=== PATIENT | female | born 1955 | race Hispanic/Latino ===

== ENCOUNTER 2020-06-07 14:36 | Emergency (ER) | payer SELFPAY ==
[2020-06-07 15:04] LABS: APPEARANCE,URINE Cloudy (CLEAR); BILIRUBIN,URINE Negative (NEGATIVE); COLOR,URINE Orange (YELLOW); GLUCOSE, URINE (UA) Negative (NEGATIVE); KETONES,URINE Negative (NEGATIVE); LEUKOCYTE ESTERASE ,URINE Large (NEGATIVE); NITRATE,URINE Negative (NEGATIVE); OCCULT BLOOD,URINE Large (NEGATIVE); PROTEIN,URINE POS 2+ mg/dL (NEGATIVE); UROBILINOGEN,URINE 0.2 mg/dL (0.2-1.0)
[2020-06-07 15:15] LABS: BACTERIA,URINE Few /HPF (None Seen); MUCUS,URINE Few LPF (None Seen); SQUAMOUS EPITHELIAL CELL,UR 0-2 /HPF (0-2)
[2020-06-07] MEDS ORDERED: PHENAZOPYRIDINE HCL 200 MG TABLET ONE (15:20)
[2020-06-07] MEDS ORDERED: CEFTRIAXONE SODIUM 1 GM ONE (15:20)
[2020-06-07] MEDS ORDERED: LIDOCAINE HCL-MPF 1% 2ML VIAL ONE (15:20)
== END 2020-06-07 15:35 | disposition home or self-care (01) ==
LOC: EDH 14:36
DX: N30.00 Acute cystitis without hematuria (principal); E78.00 Pure hypercholesterolemia, unspecified
CPT/HCPCS: 81001; 87088; 96372; 99283; J0696; J3490

== ENCOUNTER 2020-06-26 02:46 | Emergency (ER) | payer SELFPAY ==
[2020-06-26 03:04] LABS: APPEARANCE,URINE CLOUDY (CLEAR); BILIRUBIN,URINE SMALL (NEGATIVE); COLOR,URINE BROWN (YELLOW); GLUCOSE, URINE (UA) NEGATIVE (NEGATIVE); KETONES,URINE NEGATIVE (NEGATIVE); LEUKOCYTE ESTERASE ,URINE MODERATE (NEGATIVE); NITRATE,URINE POSITIVE (NEGATIVE); OCCULT BLOOD,URINE LARGE (NEGATIVE); PROTEIN,URINE 100 mg/dL (NEGATIVE)
[2020-06-26 03:47] LABS: BACTERIA,URINE Many /HPF (None Seen); MUCUS,URINE Few LPF (None Seen); RBC,URINE >100 /HPF (0-1)
[2020-06-26] MEDS ORDERED: PHENAZOPYRIDINE HCL 200 MG TABLET ONE (03:47)
[2020-06-26] MEDS ORDERED: SULFAMETHOX-TMP DS 800/160 TAB ONE (03:47)
[2020-06-26] MEDS ORDERED: DICYCLOMINE HCL 20 MG TAB ONE (03:47)
== END 2020-06-26 03:57 | disposition home or self-care (01) ==
LOC: EDH 02:46
DX: N39.0 Urinary tract infection, site not specified (principal); E78.00 Pure hypercholesterolemia, unspecified; F32.9 Major depressive disorder, single episode, unspecified
CPT/HCPCS: 81001; 87077; 87088; 87186

== ENCOUNTER 2021-06-03 18:43 | Emergency (ER) | payer SELFPAY ==
[~2021-06-03] VITALS: Ht 165.1 cm; Wt 59.4 kg
[2021-06-03 19:23] LABS: APPEARANCE,URINE Cloudy (CLEAR); BILIRUBIN,URINE Negative (NEGATIVE); COLOR,URINE Yellow (YELLOW); GLUCOSE, URINE (UA) Negative (NEGATIVE); KETONES,URINE Negative (NEGATIVE); LEUKOCYTE ESTERASE ,URINE Large (NEGATIVE); NITRATE,URINE Negative (NEGATIVE); OCCULT BLOOD,URINE Large (NEGATIVE); PH,URINE 6.5 (5.0-8.0); PROTEIN,URINE Negative (NEGATIVE)
[2021-06-03 19:30] LABS: RBC,URINE 26-50 /HPF (0-1)
[2021-06-03 19:31] LABS: BACTERIA,URINE Few /HPF (None Seen); SQUAMOUS EPITHELIAL CELL,UR Rare /HPF (0-2)
[2021-06-03] MEDS ORDERED: LACTATED RINGERS 1000ML 1,000 ML IV ONE (22:00)
[2021-06-03 22:14] LABS: BASOPHILS % (AUTO) 0.3 % (0.0-5.0); EOSINOPHILS % (AUTO) 0.4 % (0.0-8.0); HEMATOCRIT 36.1 % (36-48); LYMPHOCYTES % (AUTO) 23.6 % (21.0-51.0); MEAN CORPUSCULAR HEMOGLOBIN 31.9 pg (27.0-33.0); MEAN CORPUSCULAR HGB CONC 33.8 g/dL (32.0-36.0); MEAN CORPUSCULAR VOLUME 94.5 fL (79-99); NEUTROPHILS % (AUTO) 70.4 % (40.0-77.0); PLATELET COUNT (AUTO) 178 K/uL (130-400); RED BLOOD CELL COUNT(AUTO) 3.82 MIL/uL (4.00-5.50); RED CELL DISTRIBUTION WIDTH 11.9 % (11.0-15.5); WHITE BLOOD COUNT (AUTO) 11.4 K/uL (4.8-10.8)
[2021-06-03] MEDS ORDERED: CEFTRIAXONE 1G VIAL IVP ONE (22:30)
[2021-06-03 22:31] LABS: PROTHROMBIN TIME 10.9 SEC (9.6-11.6)
[2021-06-03 22:32] LABS: PARTIAL THROMBOPLASTIN TIME 25.6 SEC (26.3-35.5)
[2021-06-03 23:24] LABS: CARBON DIOXIDE 25 mmol/L (21-32); CHLORIDE 107 mmol/L (101-111); CREATININE 0.7 mg/dL (0.5-1.5); GLOMERULAR FILTR. RATE CALC 90 mL/min (>60); GLUCOSE,RANDOM 110 mg/dL (70-105); SODIUM SERUM 143 mmol/L (136-145); UREA NITROGEN, BLOOD 19 mg/dL (7-18)
[2021-06-03 23:29] LABS: ALANINE AMINOTRANSFERASE 32 U/L (12-78); ALBUMIN 3.5 g/dL (3.5-5.0); ASPARTATE AMINOTRANSFERASE 20 U/L (10-37); TOTAL PROTEIN, SERUM 6.8 g/dL (6.0-8.3)
[2021-06-03 23:39] LABS: BILIRUBIN,TOTAL < 0.2 mg/dL (0.2-1.0); CRP QUANTITATIVE < 2.00 mg/L (0.00-9.0)
[2021-06-04] MEDS ORDERED: PHEN-847 PO (00:32)
[2021-06-04] MEDS ORDERED: CEFU500T67 PO (00:32)
[2021-06-04 00:43] VITALS: BP 125/87
== END 2021-06-04 01:05 | disposition home or self-care (01) ==
LOC: EDH 18:43
DX: N30.91 Cystitis, unspecified with hematuria (principal); E78.00 Pure hypercholesterolemia, unspecified
CPT/HCPCS: 36415; 80053; 81001; 85025; 85610; 85730; 86140; 86850; 86900; 86901; 87077; 87088; 87186; 96361; 96374; 99283; J0696; J7120

== ENCOUNTER 2022-04-21 16:29 | Emergency (ER) | payer BC, OTHER ==
[~2022-04-21] VITALS: Ht 162.6 cm; Wt 59.9 kg
[~2022-04-21 16:29] MED LIST: CEFU500T67 PO; PHEN-847 PO
[2022-04-21] MEDS ORDERED: HYDROCODONE/ACETAMINOPHEN 5/325 MG TAB PO ONE (17:30)
[2022-04-21 18:15] VITALS: BP 118/72
[2022-04-21] MEDS ORDERED: AMOX1TAB16 PO (18:30)
[2022-04-21] MEDS ORDERED: AMOX/CLAV 875/125MG TAB PO ONE (18:30)
[2022-04-21] MEDS ORDERED: ACET-2247 PO (18:30)
== END 2022-04-21 18:40 | disposition home or self-care (01) ==
LOC: EDH 16:29
DX: S02.40DA Maxillary fracture, left side, initial encounter for closed fracture (principal); S16.1XXA Strain of muscle, fascia and tendon at neck level, initial encounter; S40.022A Contusion of left upper arm, initial encounter; S40.012A Contusion of left shoulder, initial encounter; S40.011A Contusion of right shoulder, initial encounter; Z79.899 Other long term (current) drug therapy; W01.0XXA Fall on same level from slipping, tripping and stumbling without subsequent striking against object, initial encounter; Y93.89 Activity, other specified; Y92.098 Other place in other non-institutional residence as the place of occurrence of the external cause; Y99.8 Other external cause status
CPT/HCPCS: 70450; 70486; 72125; 73030; 93005

== ENCOUNTER 2022-05-14 19:53 | Emergency (ER) | payer OTHER ==
[~2022-05-14] VITALS: Ht 160 cm; Wt 59.4 kg
[~2022-05-14 19:53] MED LIST changes: +ACET-2247 PO; +AMOX1TAB16 PO
[2022-05-14 21:12] LABS: BASOPHILS % (AUTO) 0.2 % (0.0-5.0); EOSINOPHILS % (AUTO) 0.2 % (0.0-8.0); HEMATOCRIT 38.8 % (36-48); LYMPHOCYTES % (AUTO) 20.4 % (21.0-51.0); MEAN CORPUSCULAR HEMOGLOBIN 32.3 pg (27.0-33.0); MEAN CORPUSCULAR HGB CONC 34.3 g/dL (32.0-36.0); MEAN CORPUSCULAR VOLUME 94.2 fL (79-99); MONOCYTES % (AUTO) 6.8 % (3.0-13.0); NEUTROPHILS % (AUTO) 72.2 % (40.0-77.0); PLATELET COUNT (AUTO) 218 K/uL (130-400); RED BLOOD CELL COUNT(AUTO) 4.12 MIL/uL (4.00-5.50); RED CELL DISTRIBUTION WIDTH 11.9 % (11.0-15.5)
[2022-05-14 21:19] LABS: CREATININE 0.6 mg/dL (0.5-1.5); POTASSIUM 4.2 mmol/L (3.5-5.1)
[2022-05-14 21:28] LABS: ALBUMIN 3.9 g/dL (3.5-5.0); TOTAL PROTEIN, SERUM 7.6 g/dL (6.0-8.3)
[2022-05-14 21:29] LABS: APPEARANCE,URINE CLEAR (CLEAR); BILIRUBIN,URINE NEGATIVE (NEGATIVE); COLOR,URINE LIGHT-YELLOW (YELLOW); GLUCOSE, URINE (UA) NEGATIVE (NEGATIVE); KETONES,URINE NEGATIVE (NEGATIVE); LEUKOCYTE ESTERASE ,URINE 25 Leu/uL (NEGATIVE); NITRATE,URINE NEGATIVE (NEGATIVE); OCCULT BLOOD,URINE NEGATIVE (NEGATIVE); PH,URINE 5.5 (5.0-8.0); PROTEIN,URINE NEGATIVE (NEGATIVE); UROBILINOGEN,URINE 0.2 mg/dL (0.2-1.0)
[2022-05-14 21:36] LABS: BACTERIA,URINE RARE /HPF (None Seen); MUCUS,URINE RARE LPF (None Seen); SQUAMOUS EPITHELIAL CELL,UR MOD /HPF (0-2)
[2022-05-15] MEDS ORDERED: AMOX1TAB16 PO (01:07)
[2022-05-15] MEDS ORDERED: ACET-2079 PO (01:07)
[2022-05-15 01:15] VITALS: BP 120/45
[2022-05-15] MEDS: AMOX/CLAV 875/125MG TAB PO ONE ×2 (01:32)
== END 2022-05-15 01:33 | disposition home or self-care (01) ==
LOC: EDH 19:53
DX: S02.31XA Fracture of orbital floor, right side, initial encounter for closed fracture (principal); S01.111A Laceration without foreign body of right eyelid and periocular area, initial encounter; Z98.890 Other specified postprocedural states; W18.09XA Striking against other object with subsequent fall, initial encounter; Y93.89 Activity, other specified; Y92.89 Other specified places as the place of occurrence of the external cause; Y99.8 Other external cause status
CPT/HCPCS: 36415; 70450; 70486; 71045; 72125; 80053; 81001; 84484; 85025; 93005

== ENCOUNTER 2022-05-29 10:30 | Emergency (ER) | payer OTHER ==
[~2022-05-29] VITALS: Ht 162.6 cm; Wt 59.0 kg
[~2022-05-29 10:30] MED LIST changes: +ACET-2079 PO
[2022-05-29 11:35] LABS: APPEARANCE,URINE TURBID (CLEAR); BILIRUBIN,URINE NEGATIVE (NEGATIVE); COLOR,URINE YELLOW (YELLOW); GLUCOSE, URINE (UA) >=1000 mg/dL (NEGATIVE); KETONES,URINE 5 mg/dL (NEGATIVE); LEUKOCYTE ESTERASE ,URINE 500 Leu/uL (NEGATIVE); NITRATE,URINE 2+ (NEGATIVE); OCCULT BLOOD,URINE LARGE (NEGATIVE); PH,URINE 5.5 (5.0-8.0); PROTEIN,URINE 70 mg/dL (NEGATIVE); UROBILINOGEN,URINE 0.2 mg/dL (0.2-1.0)
[2022-05-29 11:37] LABS: BACTERIA,URINE FEW /HPF (None Seen); MUCUS,URINE RARE LPF (None Seen); RBC,URINE 51-100 /HPF (0-1); SQUAMOUS EPITHELIAL CELL,UR RARE /HPF (0-2); WBC,URINE TNTC /HPF (0-1)
[2022-05-29] MEDS ORDERED: CEFU500T67 PO (11:49)
[2022-05-29] MEDS ORDERED: CEFTRIAXONE 1G VIAL IVP SCH (12:00)
[2022-05-29 12:19] VITALS: BP 138/64
== END 2022-05-29 12:26 | disposition home or self-care (01) ==
LOC: EDH 10:30
DX: N39.0 Urinary tract infection, site not specified (principal); Z98.890 Other specified postprocedural states; Z79.899 Other long term (current) drug therapy
CPT/HCPCS: 99283; 96374; 87077; 87088; 87186; 81001; J0696

== ENCOUNTER → 2024-01-04 | Outpatient (CLI) | payer OTHER | END | disposition home or self-care (01) | LOC: RAH 08:23 | PROVIDERS: ATTEND Otolaryngology Plastic Surgery within the Head & Neck | DX: R13.10 Dysphagia, unspecified (principal); K21.9 Gastro-esophageal reflux disease without esophagitis | CPT/HCPCS: 74230; 92611 ==

== ENCOUNTER 2024-05-19 17:05 | Emergency (ER) | payer OTHER ==
[~2024-05-19] VITALS: Ht 162.6 cm; Wt 53.5 kg
[2024-05-19] MEDS: ketOROlac 15MG/ML VIAL (15MG/ML) IM ONE (17:47)
[2024-05-19] MEDS ORDERED: KETO10TA2 PO (19:01)
[2024-05-19 19:24] VITALS: BP 122/60; PULSE 88; RESP 14; TEMP 98.2; O2SAT 96
== END 2024-05-19 19:26 | disposition home or self-care (01) ==
LOC: EDH 17:05
DX: R10.32 Left lower quadrant pain (principal); Z79.899 Other long term (current) drug therapy; Z98.890 Other specified postprocedural states
CPT/HCPCS: 99283; 72170; 96372; J1885

== ENCOUNTER 2025-05-12 21:42 | Emergency (ER) | payer OTHER ==
[~2025-05-12] VITALS: Ht 167.6 cm; Wt 44.0 kg
[~2025-05-12 21:42] MED LIST changes: +KETO10TA2 PO
--- NOTE | 2025-05-12 22:14 | ERN ---
ED Note History of Present Illness Stated Complaint: C/O "PEG TUBE OUT" Chief Complaint: Other Problems Time Seen by MD: 21:52 Dictation: This is a 69-year-old female who was diagnosed with supranuclear palsy and progressive weakness dysphagia and inability to walk for the past 2-3 years. Patient's spouse indicated that she had a PEG tube placement 8 or 9 months ago and most of her nutrition is through the PEG tube only. indicated that there is a provider that comes in for a few hours daily. The PEG tube came out accidentally today a couple hours ago and they brought her into the ER for further evaluation. Patient has severe dysarthria and is bed-bound Temperature 98.1 pulse 86 respirations 20 blood pressure 124/52 with a pulse oximetry of 98% on room air Chronic medical problems include progressive supranuclear palsy, dysphagia status post gastrostomy tube placement Allergies: Coded Allergies: No Known Drug Allergies (Unverified Allergy, Unknown, 06/03/21) Home Meds Active Scripts Ketorolac Tromethamine (Ketorolac Tromethamine) 10 Mg Tablet, 10 MG PO BID for 5 Days, #10 TAB Prov:JORDIN DELUNA 05/19/24 Cefuroxime Axetil (Cefuroxime) 500 Mg Tablet, 500 MG PO BID, #20 TAB Prov:MANAS DAVISON MD 05/29/22 Acetaminophen with Codeine (Acetaminophen-Cod #3 Tablet) 1 Each Tablet, 1 TAB PO Q6H PRN for PAIN LEVEL 7 TO 10, #15 TAB Prov:CLINTON GARCES MD 05/15/22 Amoxicillin/Potassium Clav (Amox Tr-K Clv 875-125 mg Tab) 1 Each Tablet, 1 EACH PO BID for 7 Days, #14 TAB Prov:CLINTON GARCES MD 05/15/22 Acetaminophen (Tylenol) 325 Mg Tablet, 650 MG PO Q4HPRN, #50 TAB Prov:HANNAH MUNOZ 04/21/22 Amoxicillin/Potassium Clav (Amox Tr-K Clv 875-125 mg Tab) 1 Each Tablet, 1 EACH PO BID for 10 Days, #20 TAB Prov:HANNAH MUNOZ 04/21/22 Phenazopyridine HCl (Pyridium) 200 Mg Tab, 200 MG PO TID PRN for URINARY DISCOMFORT, #9 TAB 0 Refills Prov:LARRY TRAYLOR MD 06/04/21 Cefuroxime Axetil (Cefuroxime) 500 Mg Tablet, 500 MG PO BID, #20 TAB 0 Refills Prov:LARRY TRAYLOR MD 06/04/21 Past Medical History Past Medical History: Other Additional Past Medical Hx: HX OF PSP, PROGRESSIVE SUPERNUCLEI PALSY Surgical History: Unknown Surgical History Other: Patient with confusion facial fracture Family History: Negative Social History: Negative, Lives with family History: Not Applicable RN Note Reviewed/Agreed w/PFSH: Yes Review of System Dictation Constitutional: Negative for fever,chills, and weight loss Eyes: Negative for injury, pain,redness, and discharge ENT: Negative for injury,pain or swelling Cardiovascular: Negative for chest pain, palpitations, and edema Respiratory: Negative for shortness of breath, cough, and wheezing, Abdomen/GI: Negative for abdominal pain, nausea, vomiting, diarrhea, and constipation Back: Negative for injury and pain : Negative for injury, bleeding and discharge MS/Extremity: Negative for injury and deformity Skin: Negative for rash, and discoloration Neuro: Negative for headache, weakness, numbness, tingling, and seizure Psych: Negative for suicide ideation, homicidal ideation, and hallucinations Initial Vital Sign VS Vital Signs Date Time Temp Pulse Resp B/P (MAP) Pulse Ox O2 Delivery O2 Flow Rate FiO2 05/12/25 21:44 98.1 86 20 124/52 98 Room Air 05/12/25 22:53 0 21 Physical Exam Dictation General: awake, alert, NAD Head/Face: Normocephalic, atraumatic Eyes: PERRL, EOMI, vision at baseline ENT: oral cavity clear, TMs clear, no signs of infection Neck: Trachea midline, supple, no nuchal rigidity Cardiovascular: RRR, normal S1/S2, No MRGs, no JVD Respiratory: CTAB, no respiratory distress, No rales or wheezes Abdomen: Soft, non-tender, non-distended, normal bowel sounds, no guarding or rebound. Skin: Warm, dry, normal turgor, no rash MS/Extremity: Pulses equal, no cyanosis, neurovascular intact, FROM Neuro: COAx4, GCS 15, strength 5/5, CN 2-12 intact, normal cerebellar exam, normal gait, Psych: Normal behavior, mood, and affect normal Extremities-trace edema without any palpable cords, Homans sign is negative Results (Laboratory/Radiology) Labs Reviewed?: Yes ED Course ED Course Orders Procedure Category Date Status Time Abd 1vw RAD 05/12/25 Resulted 22:46 Diatr PHA 05/12/25 Complete Meglu/Diatrizoate 23:16 Current Medications Medications (Trade) Dose Ordered Sig/Minnie Route PRN Reason Start Time Stop Time Status Last Admin Dose Admin Diatrizoate Meglum/ Diatrizoate Sod (Gastrografin 66-10 Solution) 30 ml STK-MED ONCE .ROUTE 05/12/25 23:16 05/12/25 23:16 DC Vital Signs Date Time Temp Pulse Resp B/P (MAP) Pulse Ox O2 Delivery O2 Flow Rate FiO2 05/13/25 00:50 98.2 78 18 122/53 98 Room Air* 0 21 05/12/25 22:53 78 18 121/46 99 Room Air* 0 21 05/12/25 21:44 98.1 86 20 124/52 98 Room Air We will perform diagnostic labs, advanced imaging and administer medications according to the patient's complaint. Once the results are available, will review and personally interpreted the labs to rule out any acute life- threatening emergency the trach require immediate intervention and treatment. I will then re-evaluate the patient after treatment and diagnostic exams have return to determine whether the patient requires any further testing, can safely be discharged home or need further admission to hospital for additional treatment and evaluation. Medical Decision Making MDM Differential diagnosis: Dislodgement of the PEG tube, abscess or cellulitis of the stoma, occlusion of the stoma This is a 69-year-old female who was diagnosed with supranuclear palsy and progressive weakness dysphagia and inability to walk for the past 2-3 years. Patient's spouse indicated that she had a PEG tube placement 8 or 9 months ago and most of her nutrition is through the PEG tube only. indicated that there is a provider that comes in for a few hours daily. The PEG tube came out accidentally today a couple hours ago and they brought her into the ER for further evaluation. Patient has severe dysarthria and is bed-bound Temperature 98.1 pulse 86 respirations 20 blood pressure 124/52 with a pulse oximetry of 98% on room air Chronic medical problems include progressive supranuclear palsy, dysphagia status post gastrostomy tube placement 11:30 p.m. labs reviewed CBC is with a normal limits BNP 7 was also with a normal limits except for the sugar of 240 11:33 p.m. upright KUB with Gastrografin-appropriate placement of the PEG tube in the stomach. I updated the patient and her on x-ray findings and patient's would like to be discharged to home care for her at home Rationale: Tests considered and ordered secondary to shared decision making include: Previous outside records reviewed: Old ER visits. Risk of complication and/or morbidity or mortality of patient management: None Medications-Per medication reconciliation Need for hospitalization: Patient does not meet criteria for hospitalization. Need for emergency major/minor surgery: No There are no social concerns with this patient. Prescription drug management Prescriptions will include symptomatic care Patient's prior external medical records from other ER visits were reviewed by me as indicated. Prior testing and results from previous visits were reviewed. Prior tests were taken into account with medical decision making and resource utilization, independent historian/historians were used to obtain complete medical history. I independently interpreted the test that were performed, results were reviewed by me and considered findings on radiology if ordered. Medical management and examination interpretation discussions were had by me with other qualified healthcare professionals as indicated for the patient's care. Procedure Additional Procedures: gastric tube replacement Progress Gastrostomy tube replacement Indication-accidental dislodgement of the existing PEG tube. Premedication-none Preparation-the new PEG tube and it is balloon were checked for proper inflation using a small syringe to inject the manufacture recommended amount of water then withdrawing it to deflate the balloon. The new tube was lubricated with a water-based lubricant. Patient was positioned reclined in bed to relax the abdominal wall muscles. Insertion of the new tube the stoma and the surrounding skin was cleansed prepped. The new tube 20. Icelandic size was gently and smoothly inserted into the existing stoma tract directing it towards the stomal opening. Once the tube is inserted the balloon was inflated by injecting 15 mL of water as recommended by the manager diversity. The tube was gently pulled back until a slight resistance was felt indicating the balloon is likely against the gastric wall. Confirmation of the placement was done by contrast imaging study-Gastrografin and obtaining an upright abdominal x-ray to outline the stomach. No immediate complications noted. Patient tolerated the procedure extremely well. Stomal site was cleaned with sterile water and cotton swab. The PEG tube was secured with a loose Laurent bandage. Gastrografin study revealed appropriate placement of the new PEG tube in the stomach Problem List Problem List: (1) Dislodged gastrostomy tube (2) Progressive supranuclear palsy (3) Dysphagia DX & DISP Disposition: Discharge Departure Impression: Primary Impression: Dislodged gastrostomy tube Additional Impressions: Dysphagia, Progressive supranuclear palsy Condition: Stable Additional Instructions: Patient and the caregiver have been informed of all the diagnostic tests and the imaging conducted during the today's visit to the emergency room and has verbalized understanding of the results I have personally reviewed and interpreted all diagnostic exams performed here in the ER today as well as the vital signs documented by the nursing staff. The patient is now being discharged to home and should follow up with the primary care physician or the specialist as directed by the ER staff. Follow-up with primary care provider in 1 to 2 days. Take medications as directed here in the emergency room. Okay to continue home medications unless otherwise discussed during your visit in the emergency room today. Return to your nearest emergency room if symptoms worsen or if there is no improvement. Call 911 if you need immediate assistance. Take Tylenol or Motrin [id number] as needed and if no contraindications are present. Increase oral hydration. A wound culture or urine culture was ordered here in the emergency room department please follow-up with primary care provider and advise them to get repeat ports from our facility. If you had any Laurent wrap/splints that were applied here, please do not remove them until you see your primary care or specialty. Referrals: JO AGUAYO MD (PCP) STEVEN BROWN MD May 12, 2025 22:14
--- NOTE | 2025-05-12 22:56 | NUR ---
PATIENT DID NOT BRING HOME MEDICATIONS
--- NOTE | 2025-05-12 23:03 | NUR ---
MD PLACED 20FR PEG TUBE WITH 15CC BALLOON, PATIENT TOLERATED WELL.
[2025-05-12] MEDS ORDERED: DIATR MEGLU/DIATRIZOATE SODIUM 30 ML BOTTLE ONE (23:16)
--- NOTE | 2025-05-13 00:26 | HMCIMG ---
Frontal view of the Abdomen. Comparison: Findings: Bowel gas pattern is normal with nondistended loops of small bowel and colon seen. There are no air-fluid levels or free air identified. There is no acute fractures. There are no kidney stones.injection of the G-tube shows contrast in the stomach Impression: No acute findings.the G-tube is in the stomach /Kyra
[2025-05-13 00:50] VITALS: BP 122/53; PULSE 78; RESP 18; TEMP 98.2; O2SAT 98
== END 2025-05-13 00:52 | disposition home or self-care (01) ==
LOC: EDH 21:42
DX: G23.1 Progressive supranuclear ophthalmoplegia [Steele-Richardson-Olszewski] (principal); R13.10 Dysphagia, unspecified; Z43.1 Encounter for attention to gastrostomy; Z79.899 Other long term (current) drug therapy
CPT/HCPCS: 99284; 43762; 74018; Q9963

== ENCOUNTER 2025-06-10 06:47 | Day surgery (SDC) | payer OTHER ==
[2025-06-10] VITALS (13 sets, daily range): BP systolic 100–109; BP diastolic 46–58; PULSE 74–89; RESP 13–16; TEMP 96.8–97.8
[~2025-06-10] VITALS: Ht 167.6 cm; Wt 45.4 kg
[~2025-06-10 06:47] MED LIST changes: -ACET-2079 PO; -AMOX1TAB16 PO; -CEFU500T67 PO; -KETO10TA2 PO; +MULT-1367 PO; -PHEN-847 PO
--- NOTE | 2025-06-10 09:46 | NUR ---
POST-GI PEG TUBE TO ANTERIOR ABDOMEN. PEG TUBE INTACT. PEG TUBE DRESSING DRY AND INTACT NO ACTIVE BLEEDING OR DRAINAGE. INSTRUCTED HOW TO CLEAN PEG TUBE DRESSING. VERBALIZED UNDERSTANDING.
[2025-06-10] MEDS: 0.9%NACL 1000ML 1,000 ML IV ONE (11:40)
== END 2025-06-10 10:17 | disposition home or self-care (01) ==
LOC: DAH 06:47 → ENDO 06:47
PROVIDERS: ATTEND Internal Medicine Gastroenterology
DX: R13.12 Dysphagia, oropharyngeal phase (principal); K94.23 Gastrostomy malfunction; R63.4 Abnormal weight loss; K59.00 Constipation, unspecified; G23.1 Progressive supranuclear ophthalmoplegia [Steele-Richardson-Olszewski]; K29.50 Unspecified chronic gastritis without bleeding; Z79.899 Other long term (current) drug therapy
CPT/HCPCS: 43246; J7030; J2704; A4620; A4215 ×2; A4223; A4222; A4221; A4663; A4606; J3490